=== PATIENT | female | born 1995 | race Two or more races ===

== ENCOUNTER 2022-09-07 10:03 | Inpatient (IN) | payer OTHER ==
[~2022-09-07] VITALS: Ht 157.5 cm; Wt 3.2 kg
[2022-09-10] MEDS ORDERED: PRENAT PO (09:35)
[2022-09-14] MEDS ORDERED: PRENATAL + DHA1 EAC1 (09:34)
== END 2022-09-16 13:04 | disposition home or self-care (01) | DRG 785 ==
LOC: OB/GYN 09-14 06:14 → O/R 09-14 06:14 → OB/GYN 09-14 08:00
PROVIDERS: ADMIT Specialist; ATTEND Specialist
PROC: 0UB70ZZ Excision of Bilateral Fallopian Tubes, Open Approach (ICD-10-PCS; 2022-09-14)
PROC: 4A1HXCZ Monitoring of Products of Conception, Cardiac Rate, External Approach (ICD-10-PCS; 2022-09-14)
PROC: 10D00Z1 Extraction of Products of Conception, Low, Open Approach (ICD-10-PCS; principal; 2022-09-14 09:15)
DX: O34.211 Maternal care for low transverse scar from previous cesarean delivery (principal); Z3A.38 38 weeks gestation of pregnancy; Z30.2 Encounter for sterilization; Z37.0 Single live birth; Z20.822 Contact with and (suspected) exposure to COVID-19